=== PATIENT | male | born 1980 | race African-American/Black ===

== ENCOUNTER 2020-08-13 08:48 | Emergency (ER) | payer MEDICAID ==
[~2020-08-13] VITALS: Ht 188 cm; Wt 115.0 kg
[2020-08-13] MEDS ORDERED: HYDROCODONE/ACETAMINOPHEN 5/325MG TABLET PO ONE (09:15)
[2020-08-13 09:46] VITALS: BP 112/63
[2020-08-13] MEDS ORDERED: HYDR-4001 MT ×2 (10:39→10:45)
[2020-08-13] MEDS ORDERED: IBUP-2029 MT (11:23)
== END 2020-08-13 12:04 | disposition home or self-care (01) ==
LOC: ER 08:48
DX: S86.811A Strain of other muscle(s) and tendon(s) at lower leg level, right leg, initial encounter (principal); M25.461 Effusion, right knee; X50.1XXA Overexertion from prolonged static or awkward postures, initial encounter; Y93.55 Activity, bike riding; Y92.89 Other specified places as the place of occurrence of the external cause
CPT/HCPCS: 29505; 73562; 99283; Z7610